=== PATIENT | female | born 1995 ===

== ENCOUNTER 2019-12-01 17:32 | Emergency (ER) | payer MEDICAID ==
[~2019-12-01] VITALS: Ht 167.6 cm; Wt 100.0 kg
[2019-12-01 17:35] VITALS: BP 158/91
== END 2019-12-01 20:43 | disposition left against medical advice (07) ==
LOC: ER 17:32
DX: R10.9 Unspecified abdominal pain (principal); Z53.21 Procedure and treatment not carried out due to patient leaving prior to being seen by health care provider